=== PATIENT | female | born 1955 | race Caucasian/White ===

== ENCOUNTER → 2024-10-10 14:48 | Outpatient (REF) | payer MEDICARE, OTHER, SELFPAY | LOC: WDC 14:48 | PROVIDERS: ATTENDING PHYSICIAN Family Medicine | DX: Z12.31 Encounter for screening mammogram for malignant neoplasm of breast (principal) | CPT/HCPCS: 77063; 77067 ==

== ENCOUNTER → 2025-06-18 14:00 | Outpatient (REF) | payer MEDICARE, OTHER, SELFPAY | LOC: HWRAD 14:00 | PROVIDERS: ATTENDING PHYSICIAN Family Medicine | DX: N83.202 Unspecified ovarian cyst, left side (principal) | CPT/HCPCS: 76830; 76856 ==

== ENCOUNTER → 2025-10-13 13:32 | Outpatient (REF) | payer MEDICARE, OTHER, SELFPAY | LOC: WDC 13:32 | PROVIDERS: ATTENDING PHYSICIAN Family Medicine | DX: M81.0 Age-related osteoporosis without current pathological fracture (principal); Z12.31 Encounter for screening mammogram for malignant neoplasm of breast | CPT/HCPCS: 77063; 77067; 77080 ==